=== PATIENT | male | born 1945 | race Two or more races ===

== ENCOUNTER 2020-06-14 21:05 | Inpatient (IN) | payer MEDICARE, OTHER ==
[~2020-06-14] VITALS: Ht 165.1 cm; Wt 69.4 kg
[2020-06-14] MEDS ORDERED: IBUPROFEN 600 MG TABLET PO ONE (21:30)
[2020-06-14] MEDS ORDERED: IV NS 0.9% 1,000 ML BAG IV ONE (21:30)
[2020-06-14 21:32] LABS: BASOPHILS % (AUTO) 0.1 % (0.0-2.0); HEMATOCRIT 39 % (39-51); HEMOGLOBIN 13.1 g/dL (13.5-17.5); LYMPHOCYTES # (AUTO) 0.3 /CMM (0.8-4.8); LYMPHOCYTES % (AUTO) 3.6 % (20.0-44.0); MEAN CORPUSCULAR HGB CONC 33 g/dl (31.0-36.0); MEAN CORPUSCULAR VOLUME 90 fL (80-96); MONOCYTES # (AUTO) 0.1 /CMM (0.1-1.30); MONOCYTES % (AUTO) 1.5 % (2.0-12.0); NEUTROPHILS # (AUTO) 8.3 /CMM (1.8-8.9); NEUTROPHILS % (AUTO) 94.8 % (43.0-81.0); PLATELET COUNT (AUTO) 207 /CMM (150-450); RED BLOOD CELL COUNT(AUTO) 4.33 MIL/uL (4.5-6.0); WHITE BLOOD COUNT (AUTO) 8.7 K/uL (4.3-11.0)
[2020-06-14 21:41] LABS: CALCIUM, SERUM 9.5 mg/dL (8.5-10.1); CARBON DIOXIDE 25 mmol/L (21-32); CHLORIDE 100 mmol/L (98-107); GLUCOSE 145 mg/dL (74-106); POTASSIUM 3.6 mmol/L (3.5-5.1); SODIUM SERUM 135 mmol/L (136-145); UREA NITROGEN, BLOOD 16 mg/dL (7-18)
--- NOTE | 2020-06-14 21:52 | NUR ---
TOBIN FROM HOME TO ER BED 5. CALLED IN BY . AAOX4. NOT IN RESP DISTRESS. PER PT'S , PT HAS BEEN HAVING ABDOMINAL PAIN SINCE YESTERDAY. BECAUSE OF THE PAIN PT HAS POOR APPETITE AND HAVE BEEN FEELING WEAK. REPORTS THAT PT HAD SEVERAL EPISODES OF VOMMITING AND REPORTS NAUSEA. PT IS LOCATED ON THE EPIGASTRIC AREA, 6/10 SHARP WHEN PRESENT. AT THE TIME OF ASSESSMENT, PT IS NOT COMPLAINING OF PAIN. PT WAS NOTED WITH TEMP OF 100.8. MD WAS AT THE BEDSIDE FOR EVAL. ORDERS RECEIVED NOTED AND CARRIED OUT. IV LINE OBTAINED ON L AC 18G. BLOOD DRAWN AND GIVEN TO PROCESS OWNER AT THE BEDSIDE
[2020-06-14 21:56] LABS: ALANINE AMINOTRANSFERASE 228 U/L (12-78); ALBUMIN 2.8 g/dL (3.4-5.0); ALKALINE PHOSPHATASE 359 U/L (46-116); ASPARTATE AMINOTRANSFERASE 57 U/L (15-37); BILIRUBIN,DIRECT 0.4 mg/dL (0.0-0.2); BILIRUBIN,TOTAL 0.9 mg/dL (0.2-1.0); LIPASE 125 U/L (73-393); TOTAL PROTEIN, SERUM 7.1 g/dL (6.4-8.2)
[2020-06-14] MEDS ORDERED: PIPERACILLIN /TAZOBACTAM 3.375 G VIAL IV ONE (22:18)
[2020-06-14] MEDS ORDERED: VANCOMYCIN 1 GM VIAL ONE (22:18)
[2020-06-14] MEDS ORDERED: ACETAMINOPHEN 325 MG TABLET ONE (22:26)
[2020-06-14] MEDS ORDERED: VANCOMYCIN 1 GM in IV D5W 250 ML IV ONE (22:30)
[2020-06-14] MEDS ORDERED: PIPERACILLIN /TAZOBACTAM 3.375 G in IV D5W 50 ML IV ONE (22:30)
[2020-06-14] MEDS ORDERED: ACETAMINOPHEN 325 MG TABLET PO ONE (22:30)
[2020-06-14 22:53] LABS: C-REACTIVE PROTEIN 5.1 mg/dL (0.0-0.9)
[2020-06-14 23:06] LABS: APPEARANCE,URINE CLEAR (CLEAR); BILIRUBIN,URINE NEGATIVE (NEGATIVE); BLOOD, URINE LARGE Ery/uL (NEGATIVE); COLOR,URINE YELLOW (YELLOW); KETONES,URINE TRACE (NEGATIVE); LEUKOCYTE ESTERASE ,URINE SMALL (NEGATIVE); NITRITE, URINE NEGATIVE (NEGATIVE); PH,URINE 8.5 (5.0-8.0); PROTEIN,URINE TRACE mg/dl (NEGATIVE); UGLUCOSE NEGATIVE (NEGATIVE)
[2020-06-14 23:09] LABS: BACTERIA,URINE Few /HPF (None Seen); RBC,URINE 21-50 /HPF (0-2); SQUAMOUS EPITHELIAL CELL,UR Few /HPF (None Seen)
--- NOTE | 2020-06-14 23:25 | NUR ---
us at bedside
[2020-06-14] MEDS ORDERED: IV NS 0.9% 1,000 ML IV PRN (23:30)
--- NOTE | 2020-06-14 23:33 | NUR ---
PT NOTED HAVE BP 84/51. MADE AWARE. ORDER RECEIVED TO GIVE BOLUS 1L NS X 1. NOTED AND CARRIED OUT.
--- NOTE | 2020-06-14 23:43 | NUR ---
ER SPOKE TO KEIRA FRANCIS [facility] REGARDING PT ADMISSION.
[2020-06-15] MEDS ORDERED: MAG HYDROX/AL HYDROX/SIMETH 30 ML UDC PO PRN
[2020-06-15] MEDS ORDERED: MAGNESIUM HYDROXIDE 30 ML UDC PO PRN
[2020-06-15] MEDS ORDERED: ZOLPIDEM TARTRATE 5 MG TABLET PO PRN
[2020-06-15] MEDS ORDERED: ACETAMINOPHEN 325 MG TABLET PO PRN
[2020-06-15] MEDS ORDERED: Z GUARD REMEDY 2 OZ OINT TP PRN
[2020-06-15] MEDS ORDERED: ONDANSETRON HCL/PF 4 MG/2 ML VIAL IVP PRN
--- NOTE | 2020-06-15 00:23 | NUR ---
DR. Ryan ELLER PAGED PER ER ORDER.
--- NOTE | 2020-06-15 00:23 | NUR ---
REPORT GIVEN TO NELLA TREVINO FOR CATHERINE.
[2020-06-15 00:35] VITALS: BP 89/49
--- NOTE | 2020-06-15 00:35 | NUR ---
CHANNEL LIP WETTER NOTES PATIENT ARRIVED ON FLOOR AT 0035. PT WALKED TO BED. ALERT AND ORIENTED X 4. BREATHING EVEN AND UNLABORED ON ROOM AIR. SHOWS NO SIGNS OF ACUTE RESPIRATORY DISTRESS, NO ACUTE PAIN. IV ON RAC 20G RUNNING NS AT 75ML/HR. SHOWS NO SIGNS OF INFILTRATION, NO REDNESS. TELE MONITOR 80'S. SKIN ASSESSMENT COMPLETED, AND BELONGINGS CHECKLIST COMPLETED. ORIENTED PT TO ROOM AND UNIT. SAFETY PRECAUTIONS IN PLACE. BED IN LOWEST POSITION, LOCKED, AND CALL LIGHT KEPT WITHIN REACH. DIFFICULT TO COMPLETED THOROUGH INITIAL ASSESSMENT, PT HAS LIMITED COMORAN.
--- NOTE | 2020-06-15 00:35 | NUR ---
PT TRANSPORTED TO UNIT ON [facility] WITH EMT AND RN AT BEDSIDE USING ACLS PROTOCOL. NAD NOTED DURING TRANSPORT. PT AMBULATED ON STEADY GAIT FROM GURNEY TO BED.
[2020-06-15] MEDS: IV NS 0.9% 1,000 ML IV PRN (00:45)
--- NOTE | 2020-06-15 01:08 | NUR ---
DR. Ryan ELLER PAGED PER ER ORDER.
[2020-06-15] MEDS ORDERED: IV NS 0.9% 250 ML IV ONE (01:30)
--- NOTE | 2020-06-15 01:33 | NUR ---
ER MD SPOKE TO DR. Ryan ELLER REGARDING PT ADMISSION.
--- NOTE | 2020-06-15 02:50 | NUR ---
PROFESSIONAL DEVELOPMENT MANAGER NOTES ADMITTING BP 89/49. MD ORDER NS 250 BOLUS. AFTER BOLUS PT BP 97/54. PT STATES NO LIGHTHEADEDNESS, NO DIZZINESS.
[2020-06-15 04:37] VITALS: BP 97/54
[2020-06-15] MEDS ORDERED: PIPERACILLIN /TAZOBACTAM 3.375 G VIAL IV ONE (05:56)
[2020-06-15] MEDS ORDERED: PIPERACILLIN /TAZOBACTAM 3.375 G in IV D5W 50 ML IV SCH ×2 (06:00→12:00)
--- NOTE | 2020-06-15 07:10 | NUR ---
REPRODUCTION MACHINE LOADER NOTES PT IN BED. ALERT AND ORIENTED X 4. BREATHING EVEN AND UNLABORED ON ROOM AIR. SHOWS NO SIGNS OF ACUTE RESPIRATORY DISTRESS, NO ACUTE PAIN. IV ON RAC 20G RUNNING NS AT 75ML/HR. SHOWS NO SIGNS OF INFILTRATION, NO REDNESS. TELE MONITOR 80'S. ALL DUE MEDICATIONS GIVEN. SAFETY PRECAUTIONS IN PLACE. BED IN LOWEST POSITION, LOCKED, AND CALL LIGHT KEPT WITHIN REACH. WILL ENDORSE TO ONCOMING NURSE.
[2020-06-15] MEDS ORDERED: TAMS-12 PO (07:12)
[2020-06-15 07:39] LABS: ALBUMIN 2.3 g/dL (3.4-5.0); BILIRUBIN,TOTAL 1.1 mg/dL (0.2-1.0); CALCIUM, SERUM 9.2 mg/dL (8.5-10.1); PHOSPHORUS 3.3 mg/dL (2.5-4.9); POTASSIUM 4.3 mmol/L (3.5-5.1); TOTAL PROTEIN, SERUM 5.9 g/dL (6.4-8.2)
[2020-06-15 07:49] LABS: BASOPHILS % (AUTO) 0.1 % (0.0-2.0); HEMATOCRIT 34 % (39-51); HEMOGLOBIN 11.1 g/dL (13.5-17.5); LYMPHOCYTES # (AUTO) 0.9 /CMM (0.8-4.8); LYMPHOCYTES % (AUTO) 3.8 % (20.0-44.0); MEAN CORPUSCULAR HGB CONC 33 g/dl (31.0-36.0); MEAN CORPUSCULAR VOLUME 91 fL (80-96); MONOCYTES # (AUTO) 1.3 /CMM (0.1-1.30); MONOCYTES % (AUTO) 5.7 % (2.0-12.0); NEUTROPHILS % (AUTO) 90.4 % (43.0-81.0); PLATELET COUNT (AUTO) 200 /CMM (150-450); RED BLOOD CELL COUNT(AUTO) 3.73 MIL/uL (4.5-6.0); WHITE BLOOD COUNT (AUTO) 23.3 K/uL (4.3-11.0)
--- NOTE | 2020-06-15 08:00 | NUR ---
DIRECTOR CHECK OPENING NOTES Received Patient resting in bed. A/O x 4, Swiss speaking. VS stable with no acute distress. Breathing even and unlabored on room air with no respiratory distress. Denies pain. No signs and symptoms of pain. Telemonitor in place and patent reading SR [id number]. 20g PIV on RAC clean, intact, patent and flushing well with NS infusing at 75ml/hr. Safety precautions in place. Bed locked and set to lowest position with side rails x 2 up. All needs rendered at this time. Call light within reach. Will continue to monitor.
[2020-06-15 08:25] VITALS: BP 100/61
[2020-06-15] MEDS: PANTOPRAZOLE 40 MG TABLET.DR PO SCH (09:18)
[2020-06-15] MEDS: PIPERACILLIN /TAZOBACTAM 3.375 G in IV D5W 100 ML IV SCH ×2 (12:22→21:54)
--- NOTE | 2020-06-15 13:30 | NUR ---
MS RN NOTES Obtained consent for Nuclear Medicine Hepatobiliary Scan (HIDA) at this time. Explained risks and benefits. Patient verbalized understanding. Placed signed consent in chart.
--- NOTE | 2020-06-15 19:08 | NUR ---
MS RN CLOSING NOTES Patient resting in bed. A/O x 4, [place] Verdean speaking. VS stable with no acute distress. Breathing even and unlabored on room air with no respiratory distress. Denies pain. No signs and symptoms of pain. 20g PIV on RAC clean, intact, patent and flushing well with NS infusing at 75ml/hr. Safety precautions in place. Bed locked and set to lowest position with side rails x 2 up. All needs rendered at this time. Call light within reach. Will endorse plan of care to oncoming shift.
[2020-06-15 20:00] VITALS: BP 121/69
[2020-06-15] MEDS ORDERED: FEE PK DOSING 1 MIN EA MC ONE (20:14)
[2020-06-15] MEDS: VANCOMYCIN 1 GM in IV D5W 250ml IV SCH (21:55)
[2020-06-15] MEDS: HYDROCODONE/APAP 5/325MG 1 EACH TABLET PO PRN (23:35)
[2020-06-16] MEDS: IV NS 0.9% 1,000 ML IV PRN ×2 (00:13→23:05)
[2020-06-16] MEDS: PIPERACILLIN /TAZOBACTAM 3.375 G in IV D5W 100 ML IV SCH ×3 (03:06→21:21)
--- NOTE | 2020-06-16 07:40 | NUR ---
RN MS DAY NOTES PATIENT IS AWAKE AND ALERT A/O X 3. IV ON THE L HAND #22G RUNNING NS AT 75 MLS/HR. COMPLAINS OF NO PAIN AT THIS MOMENT. BED IS IN LOW POSITION WITH SIDE RAILS UP X 2 FOR SAFETY. CALL LIGHT WITHIN REACH WILL CONTINUE TO MONITOR
[2020-06-16 08:00] VITALS: BP 135/74
[2020-06-16] MEDS: PANTOPRAZOLE 40 MG TABLET.DR PO SCH (08:22)
[2020-06-16 08:23] LABS: BASOPHILS % (AUTO) 0.1 % (0.0-2.0); HEMATOCRIT 37 % (39-51); LYMPHOCYTES # (AUTO) 1.2 /CMM (0.8-4.8); LYMPHOCYTES % (AUTO) 7.7 % (20.0-44.0); MEAN CORPUSCULAR HGB CONC 33 g/dl (31.0-36.0); MEAN CORPUSCULAR VOLUME 91 fL (80-96); MONOCYTES # (AUTO) 1.1 /CMM (0.1-1.30); MONOCYTES % (AUTO) 7.1 % (2.0-12.0); NEUTROPHILS # (AUTO) 13.3 /CMM (1.8-8.9); NEUTROPHILS % (AUTO) 85.1 % (43.0-81.0); PLATELET COUNT (AUTO) 190 /CMM (150-450); RED BLOOD CELL COUNT(AUTO) 4.03 MIL/uL (4.5-6.0); WHITE BLOOD COUNT (AUTO) 15.6 K/uL (4.3-11.0)
[2020-06-16 08:54] LABS: ALBUMIN 2.4 g/dL (3.4-5.0); BILIRUBIN,DIRECT 0.3 mg/dL (0.0-0.2); BILIRUBIN,TOTAL 0.7 mg/dL (0.2-1.0); CALCIUM, SERUM 9.4 mg/dL (8.5-10.1); CREATININE 0.9 mg/dL (0.6-1.3); POTASSIUM 3.5 mmol/L (3.5-5.1); TOTAL PROTEIN, SERUM 6.4 g/dL (6.4-8.2)
[2020-06-16] MEDS: VANCOMYCIN 1 GM in IV D5W 250ml IV SCH ×2 (09:55→20:04)
[2020-06-16 16:00] VITALS: BP 138/79
--- NOTE | 2020-06-16 18:54 | NUR ---
RN MS CLOSED NOTES PATIENT IS AWAKE AND ALERT A/O X 3-4 WITH NO SIGNS OF DISTRESS IN ROOM AIR. IV ON THE LEFT HAND #22G INTACT INTACT INFUSING NS AT 75 MLS/HR. PATIENT KEPT CLEAN AND DRY. ALL NEEDS CARE, TREATMENT AND MEDICATIONS ADMINISTERED ANTICIPATED PER ORDER. BED IS IN LOW POSITION WITH SIDE RAILS UP X 2 FOR SAFETY. CALL LIGHT WITHIN REACH. WILL ENDORSE TO THE NEXT BAKER PIE.
--- NOTE | 2020-06-16 19:50 | NUR ---
RN OPENING NOTE PT RECEIVED IN BED. PT IS A/A/O X4. PT IS ON RA SATING 95%. NO RESPIRATORY DISTRESS NOTED. PT HAS IV ACCESS RAC 20 G AND L AC 22 G PATENT AND NS 75ML/H RUNNING. SAFETY MEASURES IN PLACE CALL LIGHT IN REACH, BED AT LOWEST POSITION, LOCKED, SIDE RAILS UP X2.
[2020-06-16 20:00] VITALS: BP 127/71
[2020-06-17] MEDS: PIPERACILLIN /TAZOBACTAM 3.375 G in IV D5W 100 ML IV SCH ×3 (05:17→21:35)
--- NOTE | 2020-06-17 07:48 | NUR ---
RN MS DAY NOTES PATIENT IS AWAKE AND ALERT A/O X 3. IV ON THE R HAND #22G INTACT SL AND IV L AC #20G RUNNING NS AT 75 MLS/HR. COMPLAINS OF NO PAIN AT THIS MOMENT. BED IS IN LOW POSITION WITH SIDE RAILS UP X 2 FOR SAFETY. CALL LIGHT WITHIN REACH. WILL CONTINUE TO MONITOR.
[2020-06-17 08:00] VITALS: BP 127/72
[2020-06-17 08:05] LABS: BASOPHILS % (AUTO) 0.2 % (0.0-2.0); EOSINOPHILS % (AUTO) 0.9 % (0.0-6.0); HEMATOCRIT 36 % (39-51); HEMOGLOBIN 12.1 g/dL (13.5-17.5); LYMPHOCYTES # (AUTO) 1.4 /CMM (0.8-4.8); LYMPHOCYTES % (AUTO) 14.3 % (20.0-44.0); MEAN CORPUSCULAR HGB CONC 34 g/dl (31.0-36.0); MEAN CORPUSCULAR VOLUME 90 fL (80-96); MONOCYTES # (AUTO) 1.2 /CMM (0.1-1.30); MONOCYTES % (AUTO) 11.5 % (2.0-12.0); NEUTROPHILS # (AUTO) 7.3 /CMM (1.8-8.9); NEUTROPHILS % (AUTO) 73.1 % (43.0-81.0); PLATELET COUNT (AUTO) 217 /CMM (150-450); RED BLOOD CELL COUNT(AUTO) 4.03 MIL/uL (4.5-6.0)
[2020-06-17 08:22] LABS: CALCIUM, SERUM 9.6 mg/dL (8.5-10.1); CREATININE 0.9 mg/dL (0.6-1.3); POTASSIUM 3.6 mmol/L (3.5-5.1)
[2020-06-17] MEDS: PANTOPRAZOLE 40 MG TABLET.DR PO SCH (08:47)
[2020-06-17] MEDS: VANCOMYCIN 1 GM in IV D5W 250ml IV SCH (09:10)
[2020-06-17 16:00] VITALS: BP_SYST 111; BP_SYST 119; BP_DIAS 71; BP_DIAS 72
--- NOTE | 2020-06-17 18:53 | NUR ---
RN MS CLOSED NOTES PATIENT IS AWAKE AND ALERT A/O X 3. IV ON THE R HAND #22G INTACT SL AND IV L AC #20G RUNNING NS AT 75 MLS/HR. COMPLAINS OF NO PAIN AT THIS MOMENT. PATIENT REMAINED STABLE THROUGH OUT OF SHIFT. PATIENT KEPT CLEAN AND DRY. ALL NEEDS, CARE, TREATMENT AND MEDICATIONS ADMINISTERED ANTICIPATED PER ORDER. SAFETY MEASURE APPLIED, BED IS IN LOW POSITION WITH SIDE RAILS UP X 2 FOR SAFETY. CALL LIGHT WITHIN REACH. WILL ENDORSE TO THE NEXT JANITOR SUPERVISOR.
[2020-06-17] MEDS: VANCOMYCIN 1.25 GM in IV D5W 250 ML IV SCH (19:36)
--- NOTE | 2020-06-17 19:55 | NUR ---
MS RN OPENING NOTES PATIENT RECEIVED RESTING IN BED A/O X 4, MOSTLY [place]ORRAN SPEAKING BUT ABLE TO FOLLOW COMMANDS. ON RA WITH BREATHING EVEN AND UNLABORED, NO SOB NOTED. NO SIGNS OF ACUTE DISTRESS. NO COMPLAINTS OF PAIN OR DISCOMFORT. IV LOCATED ON RHAND #22 AND L AC #20 RUNNING NS @ 75ML/HR. SAFETY PRECAUTIONS IN PLACE WITH BED IN LOWEST POSITION, CALL LIGHT WITHIN REACH, BREAKS ON, SIDE RAILS UP. PATIENT REMAINING NPO THROUGHOUT THE NIGHT. WILL CONTINUE TO MONITOR THROUGHOUT THE NIGHT.
[2020-06-17 20:00] VITALS: BP 126/83
--- NOTE | 2020-06-17 22:14 | NUR ---
MS RN NOTES CONSENT OBTAINED FROM PATIENT FOR PROCEDURE TOMORROW
[2020-06-18] MEDS: PIPERACILLIN /TAZOBACTAM 3.375 G in IV D5W 100 ML IV SCH ×3 (04:24→22:30)
[2020-06-18] MEDS: IV NS 0.9% 1,000 ML IV PRN (06:33)
[2020-06-18 06:38] LABS: BASOPHILS % (AUTO) 0.3 % (0.0-2.0); EOSINOPHILS % (AUTO) 4.5 % (0.0-6.0); HEMATOCRIT 38 % (39-51); HEMOGLOBIN 12.5 g/dL (13.5-17.5); LYMPHOCYTES % (AUTO) 12.2 % (20.0-44.0); MEAN CORPUSCULAR HGB CONC 33 g/dl (31.0-36.0); MEAN CORPUSCULAR VOLUME 90 fL (80-96); MONOCYTES # (AUTO) 1.1 /CMM (0.1-1.30); MONOCYTES % (AUTO) 13.3 % (2.0-12.0); NEUTROPHILS # (AUTO) 5.7 /CMM (1.8-8.9); NEUTROPHILS % (AUTO) 69.7 % (43.0-81.0); PLATELET COUNT (AUTO) 256 /CMM (150-450); RED BLOOD CELL COUNT(AUTO) 4.22 MIL/uL (4.5-6.0); WHITE BLOOD COUNT (AUTO) 8.1 K/uL (4.3-11.0)
[2020-06-18 06:49] LABS: CALCIUM, SERUM 9.5 mg/dL (8.5-10.1); CREATININE 1.1 mg/dL (0.6-1.3); POTASSIUM 3.4 mmol/L (3.5-5.1)
--- NOTE | 2020-06-18 07:02 | NUR ---
MS RN CLOSING NOTES PATIENT RESTING IN BED A/O X 4, MOSTLY [place] SPEAKING BUT ABLE TO FOLLOW COMMANDS. ON RA WITH BREATHING EVEN AND UNLABORED, NO SOB NOTED. NO SIGNS OF ACUTE DISTRESS. NO COMPLAINTS OF PAIN OR DISCOMFORT. IV LOCATED ON RHAND #22 AND L AC #20 RUNNING NS @ 75ML/HR. SAFETY PRECAUTIONS IN PLACE WITH BED IN LOWEST POSITION, CALL LIGHT WITHIN REACH, BREAKS ON, SIDE RAILS UP. PATIENT REMAINED NPO THROUGHOUT THE NIGHT. ALL NEEDS ATTENDED TO. WILL ENDORSE TO ONCOMING SHIFT ABOUT CATHERINE.
[2020-06-18] MEDS: PANTOPRAZOLE 40 MG TABLET.DR PO SCH (07:30)
--- NOTE | 2020-06-18 07:49 | NUR ---
RN MS DAY NOTES PATIENT IS AWAKE AND ALERT A/O X 3. IV ON THE R HAND #22G INTACT SL AND IV L AC #20G RUNNING NS AT 75 MLS/HR. COMPLAINS OF NO PAIN AT THIS MOMENT. NPO. BED IS IN LOW POSITION WITH SIDE RAILS UP X 2 FOR SAFETY. CALL LIGHT WITHIN REACH. WILL CONTINUE TO MONITOR.
[2020-06-18 08:00] VITALS: BP 122/70
[2020-06-18] MEDS: POTASSIUM CL. PREMIX PERIPHER. 50 ML IV SCH ×2 (09:00→09:30)
[2020-06-18] MEDS: VANCOMYCIN 1.25 GM in IV D5W 250 ML IV SCH ×2 (09:00→20:17)
--- NOTE | 2020-06-18 10:00 | NUR ---
PATIENT WAS COMPLAINING OF PAIN WITH POTASSIUM CHLORIDE, SECOND BAG OF POTASSIUM CHLORIDE IV WAS CHANGED WITH XYLOCAINE PER MD BRAXTON ORDERED. REPEATED BACK ORDER AND CARRIED OUT.
[2020-06-18] MEDS ORDERED: POTASSIUM CHLORIDE 10 MEQ/50 ML PREMIXED IVPB FOR PERIPHERAL LINE IV ONE (10:30)
[2020-06-18] MEDS ORDERED: Potassium Chloride 10 MEQ, LIDOCAINE HCL/PF 1% 1 ML in IV D5W 50 ML IV SCH (11:00)
[2020-06-18] MEDS ORDERED: BUPIVACAINE MPF 0.5% W/EPI INJ 30 ML VIAL ONE (14:52)
[2020-06-18] MEDS ORDERED: LIDOCAINE HCL/MPF 1% 30 ML VIAL IJ ONE (14:52)
--- NOTE | 2020-06-18 15:20 | NUR ---
PATIENT LEFT TO OR, STABLE ALERT AND ORIENTED.
[2020-06-18] MEDS ORDERED: FENTANYL PF 100MCG/2ML AMPUL ONE ×2 (15:48→16:45)
[2020-06-18] MEDS ORDERED: SUCCINYLCHOLINE CHLORIDE 20 MG/ML VIAL ONE (15:48)
[2020-06-18] MEDS ORDERED: IOHEXOL 240MG/ML 0 ML IV ONE (17:19)
[2020-06-18] MEDS ORDERED: HYDROMORPHONE INJ 2 MG/ML DISP.SYRIN ONE (18:14)
[2020-06-18 19:05] VITALS: BP 132/83
--- NOTE | 2020-06-18 19:05 | NUR ---
OR RECOVERY NURSE SRIRAM GAVE REPORT TOWARDS THE PATIENT AT BEDSIDE. PATIENT ARRIVED VIA GURNEY. ABDOMINAL SURGICAL STERILE STRIPS INTACT ON SKIN AND RIGHT LOWER ABDOMEN ZENAIDA DRAINAGE 10 ML 2X2 DRESSING. PATIENT IS ALERT AND AWAKE WITH 3 L NASAL CANNULA. VITALS BP 132/83 HR 88 SPO2 94% TEMP 97.8. REPORTED PAIN 6/10 PS. WAITING ON DOCTOR ORDERS. SAFETY MEASURES ARE APPLIED BED IS IN LOW POSITION WITH SIDE RAILS UP X 2 FOR SAFETY. CALL LIGHT WITHIN REACH. WILL ENDORSE TO THE NEXT DRY HEAT ROOM ATTENDANT.
[2020-06-18 19:15] VITALS: BP 136/75
--- NOTE | 2020-06-18 19:28 | NUR ---
CALLED PATIENT TO INFORM HER PATIENT IS BACK FROM RECOVERY ROOM.
[2020-06-18 19:30] VITALS: BP 125/71
[2020-06-18 20:00] VITALS: BP 136/75
--- NOTE | 2020-06-18 20:01 | NUR ---
MS RN OPENING NOTES PATIENT RECEIVED IN BED RESTING S/P PROCEDURE. VITALS STABLE. ON 2L OF O2 WITH BREATHING EVEN AND UNLABORED, NO SOB NOTED. NO SIGNS OF ACUTE DISTRESS. SLIGHT COMPLAINTS OF PAIN OR DISCOMFORT. A/O X 4. IV LOCATED ON L AC #20 RUNNING NS @ 75 ML/ HR. ZENAIDA DRAIN NOTED AND IN PLACE ON R LOWER ABDOMEN. SAFETY PRECAUTIONS IN PLACE WITH BED IN LOWEST POSITION, CALL LIGHT WITHIN REACH, BREAKS ON, SIDE RAILS UP. WILL CONTINUE TO MONITOR THROUGHOUT THE NIGHT.
[2020-06-19] MEDS: PIPERACILLIN /TAZOBACTAM 3.375 G in IV D5W 100 ML IV SCH ×3 (03:59→20:00)
--- NOTE | 2020-06-19 06:48 | NUR ---
MS RN CLOSING NOTES PATIENT IN BED RESTING A/O X 4. ON 2L OF O2 WITH BREATHING EVEN AND UNLABORED, NO SOB NOTED. NO SIGNS OF ACUTE DISTRESS. SLIGHT COMPLAINTS OF PAIN OR DISCOMFORT. IV LOCATED ON L AC #20 RUNNING NS @ 75 ML/ HR. ZENAIDA DRAIN NOTED AND IN PLACE ON R LOWER ABDOMEN DRAINING RED OUTPUT. SAFETY PRECAUTIONS IN PLACE WITH BED IN LOWEST POSITION, CALL LIGHT WITHIN REACH, BREAKS ON, SIDE RAILS UP. ALL NEEDS ATTENDED TO. WILL ENDORSE TO ONCOMING SHIFT ABOUT CATHERINE.
--- NOTE | 2020-06-19 07:39 | NUR ---
MS RN OPENING NOTES RECEIVED PATIENT IN BED, AWAKE, A/O X4. PATIENT IS ON OXYGEN THERAPY; BREATHING IS EVEN AND UNLABORED, NO SOB PRESENT AT THIS TIME. COMPLAINING OF MILD PAIN AT THE SURGERY SITE. ZENAIDA DRAIN DRAINING SEROSANGUINEOUS FLUID. LAC G#22 PRESENT AND INTACT INFUSING NS @75 MLS/HR. SAFETY PRECAUTIONS IN PLACE; BED IN LOW POSITION AND LOCKED, RAILS UP X2, CALL LIGHT WITHIN REACH. WILL CONTINUE TO MONITOR PATIENT.
[2020-06-19 08:00] VITALS: BP 119/71
[2020-06-19] MEDS: PANTOPRAZOLE 40 MG TABLET.DR PO SCH (08:06)
[2020-06-19 08:26] LABS: BASOPHILS % (AUTO) 0.1 % (0.0-2.0); EOSINOPHILS % (AUTO) 0.4 % (0.0-6.0); HEMATOCRIT 35 % (39-51); HEMOGLOBIN 11.7 g/dL (13.5-17.5); LYMPHOCYTES # (AUTO) 1.1 /CMM (0.8-4.8); MEAN CORPUSCULAR HGB CONC 34 g/dl (31.0-36.0); MEAN CORPUSCULAR VOLUME 91 fL (80-96); MONOCYTES # (AUTO) 0.9 /CMM (0.1-1.30); MONOCYTES % (AUTO) 11.8 % (2.0-12.0); NEUTROPHILS # (AUTO) 5.9 /CMM (1.8-8.9); NEUTROPHILS % (AUTO) 73.7 % (43.0-81.0); PLATELET COUNT (AUTO) 290 /CMM (150-450); RED BLOOD CELL COUNT(AUTO) 3.84 MIL/uL (4.5-6.0)
[2020-06-19] MEDS ORDERED: METR500T PO (08:47)
[2020-06-19] MEDS ORDERED: CIPR-262 PO (08:47)
[2020-06-19 09:14] LABS: ALANINE AMINOTRANSFERASE 109 U/L (12-78); ALBUMIN 2.1 g/dL (3.4-5.0); ALKALINE PHOSPHATASE 199 U/L (46-116); ASPARTATE AMINOTRANSFERASE 70 U/L (15-37); BILIRUBIN,TOTAL 0.7 mg/dL (0.2-1.0); CALCIUM, SERUM 9.6 mg/dL (8.5-10.1); CARBON DIOXIDE 27 mmol/L (21-32); CHLORIDE 106 mmol/L (98-107); CREATININE 1.4 mg/dL (0.6-1.3); GLUCOSE 109 mg/dL (74-106); MAGNESIUM 2.4 mg/dL (1.8-2.4); PHOSPHORUS 3.8 mg/dL (2.5-4.9); SODIUM SERUM 141 mmol/L (136-145); TOTAL PROTEIN, SERUM 6.2 g/dL (6.4-8.2); UREA NITROGEN, BLOOD 21 mg/dL (7-18)
--- NOTE | 2020-06-19 19:23 | NUR ---
MS RN CLOSING NOTES PATIENT IN BED, AWAKE, A/O X4. PATIENT IS ON OXYGEN THERAPY AT 2 LPM VIA NASAL CANULA; BREATHING IS EVEN AND UNLABORED, NO SOB PRESENT AT THIS TIME. COMPLAINING OF MILD PAIN AT THE SURGERY SITE. ZENAIDA DRAIN DRAINING SEROSANGUINEOUS FLUID WITH 25 MLS OUTPUT. RAC G#20 PRESENT AND INTACT INFUSING NS @75 MLS/HR. ALL NEEDS ATTENDED TO THROUGHOUT THE DAY. SAFETY PRECAUTIONS IN PLACE; BED IN LOW POSITION AND LOCKED, RAILS UP X2, CALL LIGHT WITHIN REACH. WILL ENDORSE TO JET AIRCRAFT SERVICER NURSE.
--- NOTE | 2020-06-19 19:34 | NUR ---
MS RN OPENING NOTES PATIENT RECEIVED RESTING IN BED A/OX4. STABLE ON RA WITH RBETHING EVEN AND UNLABRED, NO SOB NOTED. NO SIGNS OF ACUTE DISTRESS. SLIGHT COMPLAINTS OF PAIN AND DISCOMFORT. ZENAIDA DRAIN NOTED AND IN PLACE. IV LOCATED ON R HAND RUNNING NS @ 75 ML/HR. SAFETY PRECAUTIONS IN PLACE WITH BED IN LOWEST POSITION, CALL LIGHT WITHIN REACH, BREAKS ON, SIDE RAILS UP/ WILL CONTINUE TO MONITOR THROUGHOUT THE NIGHT.
[2020-06-19 20:00] VITALS: BP 119/69
[2020-06-19] MEDS: HYDROCODONE/APAP 5/325MG 1 EACH TABLET PO PRN (20:00)
[2020-06-20] MEDS: PIPERACILLIN /TAZOBACTAM 3.375 G in IV D5W 100 ML IV SCH (04:06)
--- NOTE | 2020-06-20 06:50 | NUR ---
MS RN OPENING NOTES PATIENT RESTING IN BED A/OX4. STABLE ON RA WITH BREATHING EVEN AND UNLABORED, NO SOB NOTED. NO SIGNS OF ACUTE DISTRESS. SLIGHT COMPLAINTS OF PAIN AND DISCOMFORT. ZENAIDA DRAIN NOTED AND IN PLACE. IV LOCATED ON R WRIST RUNNING NS @ 75 ML/HR. SAFETY PRECAUTIONS IN PLACE WITH BED IN LOWEST POSITION, CALL LIGHT WITHIN REACH, BREAKS ON, SIDE RAILS UP. ALL NEEDS ATTENDED TO. WILL ENDORSE TO ONCOMING SHIFT ABOUT CATHERINE.
[2020-06-20 07:12] LABS: BASOPHILS % (AUTO) 0.3 % (0.0-2.0); EOSINOPHILS % (AUTO) 1.1 % (0.0-6.0); HEMATOCRIT 35 % (39-51); HEMOGLOBIN 11.6 g/dL (13.5-17.5); LYMPHOCYTES # (AUTO) 1.4 /CMM (0.8-4.8); LYMPHOCYTES % (AUTO) 16.3 % (20.0-44.0); MEAN CORPUSCULAR HGB CONC 33 g/dl (31.0-36.0); MEAN CORPUSCULAR VOLUME 91 fL (80-96); MONOCYTES # (AUTO) 1.1 /CMM (0.1-1.30); NEUTROPHILS # (AUTO) 5.9 /CMM (1.8-8.9); NEUTROPHILS % (AUTO) 69.3 % (43.0-81.0); PLATELET COUNT (AUTO) 304 /CMM (150-450); RED BLOOD CELL COUNT(AUTO) 3.83 MIL/uL (4.5-6.0); WHITE BLOOD COUNT (AUTO) 8.5 K/uL (4.3-11.0)
[2020-06-20 07:53] LABS: ALBUMIN 2.1 g/dL (3.4-5.0); BILIRUBIN,TOTAL 0.8 mg/dL (0.2-1.0); CALCIUM, SERUM 9.3 mg/dL (8.5-10.1); CREATININE 1.3 mg/dL (0.6-1.3); MAGNESIUM 2.3 mg/dL (1.8-2.4); PHOSPHORUS 1.9 mg/dL (2.5-4.9); POTASSIUM 3.4 mmol/L (3.5-5.1); TOTAL PROTEIN, SERUM 6.3 g/dL (6.4-8.2)
[2020-06-20 08:00] VITALS: BP 121/72
--- NOTE | 2020-06-20 08:00 | NUR ---
RECEIVED PT. IN AM,ALERT AND ORIENTED X3-4.MOSTLY LIBY[place] SPEAKING.ABD,SURG. SITES DRY AND INTACT.ZENAIDA DRAIN IN PLACE WITH MOD. AMT. SEROSANGUINOUS DRAINAGE.VS STABLE.NO COMPLAINTS OFFERED.IV INFUSING.
[2020-06-20] MEDS: PANTOPRAZOLE 40 MG TABLET.DR PO SCH (09:18)
[2020-06-20] MEDS ORDERED: POTASSIUM CHLORIDE 20 MEQ TAB.PRT.SR PO ONE (11:30)
[2020-06-20] MEDS ORDERED: POTASSIUM PHOSPHATE MM 7.5 MMOL in IV D5W 100 ML IV SCH (12:00)
[2020-06-20] MEDS ORDERED: NEUTRA PHOS 1 POWD.PACKET PO ONE (12:00)
--- NOTE | 2020-06-20 12:00 | NUR ---
DUE TO DISCHARGE PHARM. CALLED TO CLARIFY WITH STAVE CUTTING SUPERVISOR ON IV PHOSPHOROUS REPLACEMENT.
--- NOTE | 2020-06-20 12:30 | NUR ---
RN GAVE AAKASH QUEZADA.PKTS.
--- NOTE | 2020-06-20 13:15 | NUR ---
Woody MCKEON EMERGENCY MEDICINE PHYSICIAN IN AND DC ORDER GIVEN,PENDING SURG. CLEARANCE.ORDERS FOR KPHOS.
--- NOTE | 2020-06-20 13:20 | NUR ---
DC INSTRUCTIONS GIVEN .TRAVELING PASSENGER AGENT FOR DR. ELLER HERE AND REMOVED ZENAIDA DRAIN.HEP LOCK OUT.ALL PAPERS SIGNED INCLUDING BELONGING SHEET.TRANSPORTED VIA W/C TO [facility]. WAITING JUST OUTSIDE HOSP.
[2020-06-21 07:29] LABS: PTH, INTACT 41 pg/mL (15-65)
[2020-06-21 15:11] LABS: *SPE A/G RATIO 0.7 (0.7-1.7); *SPE ALBUMIN 2.1 g/dL (2.9-4.4); *SPE ALPHA-1-GLOBULIN 0.5 g/dL (0.0-0.4); *SPE ALPHA-2-GLOBULIN 0.8 g/dL (0.4-1.0); *SPE BETA GLOBULIN 1.1 g/dL (0.7-1.3); *SPE GLOBULIN, TOTAL 3.2 g/dL (2.2-3.9); *SPE M-SPIKE Not Observed g/dL (Not Observed); *SPEGAMMA GLOBULIN 0.8 g/dL (0.4-1.8)
== END 2020-06-20 13:15 | disposition home or self-care (01) | DRG 853 ==
LOC: ER 21:12 → TELE 06-15 00:03 → MED 06-15 07:51
PROVIDERS: ADMIT Nurse Practitioner Acute Care; ATTEND Nurse Practitioner Acute Care
PROC: 0FT44ZZ Resection of Gallbladder, Percutaneous Endoscopic Approach (ICD-10-PCS; principal; 2020-06-18)
PROC: 0FB04ZX Excision of Liver, Percutaneous Endoscopic Approach, Diagnostic (ICD-10-PCS; 2020-06-18)
DX: A41.9 Sepsis, unspecified organism (principal); K65.9 Peritonitis, unspecified; N17.0 Acute kidney failure with tubular necrosis; R65.21 Severe sepsis with septic shock; E44.0 Moderate protein-calorie malnutrition; N39.0 Urinary tract infection, site not specified; K80.12 Calculus of gallbladder with acute and chronic cholecystitis without obstruction; R74.0 Nonspecific elevation of levels of transaminase and lactic acid dehydrogenase [LDH]; D63.8 Anemia in other chronic diseases classified elsewhere; R53.1 Weakness; E88.09 Other disorders of plasma-protein metabolism, not elsewhere classified; Z68.25 Body mass index [BMI] 25.0-25.9, adult; N28.89 Other specified disorders of kidney and ureter; Z88.2 Allergy status to sulfonamides; N40.1 Benign prostatic hyperplasia with lower urinary tract symptoms
CPT/HCPCS: 36415; 71045-TC; 76705-TC; 78226; 80048-TC; 80053-TC; 80076-TC; 80202-TC; 81000-TC; 82140-TC; 82150-TC; 82550-TC; 83605-TC; 83690-TC; 83735-TC; 83970; 84100-TC; 84132-TC; 84155; 84165; 84484-TC; 85025-TC; 85610-TC; 85730-TC; 86140-TC; 86850-TC; 87040-TC; 87081-TC; 87086-TC; 87186-TC; A9537; G0378; J0330; J1170; J2543; J3010; J3370; J3480; J3490; J7030; J7050; J7060; Q9966

== ENCOUNTER 2020-06-22 09:59 | Emergency (ER) | payer MEDICARE, OTHER ==
[~2020-06-22] VITALS: Ht 170.2 cm; Wt 70.3 kg
[~2020-06-22 09:59] MED LIST: CIPR-262 PO; METR500T PO; TAMS-12 PO
--- NOTE | 2020-06-22 10:09 | NUR ---
PT AMBULATORY TO ER BED 04 C/O ANTHONY PAIN X 2 DAYS. PT STATES HAD A SURGICAL PROCEDURE 4 DAYS AGO. PT DENIES ANY OTHER COMPLAINT AT THIS TIME. AWAITING MD CHOI
--- NOTE | 2020-06-22 10:17 | NUR ---
DR CHRISTOPHER AT BEDSIDE FOR EVAL.
--- NOTE | 2020-06-22 11:18 | NUR ---
U/S TECH AT BEDSIDE FOR LUE DUPLEX ULTRASOUND.
[2020-06-22] MEDS ORDERED: APIXABAN 2.5 MG TABLET PO SCH (12:00)
--- NOTE | 2020-06-22 12:01 | NUR ---
Patient discharged to home in stable condition. Written and verbal after care instructions given. Patient verbalizes understanding of instruction.
[2020-06-22 12:02] VITALS: BP 108/63
== END 2020-06-22 12:04 | disposition home or self-care (01) ==
LOC: ER 10:04
DX: I82.622 Acute embolism and thrombosis of deep veins of left upper extremity (principal); Z90.79 Acquired absence of other genital organ(s); Z79.899 Other long term (current) drug therapy
CPT/HCPCS: 93971-TC

== ENCOUNTER 2020-06-23 11:08 | Emergency (ER) | payer MEDICARE, OTHER ==
[~2020-06-23] VITALS: Ht 170.2 cm; Wt 70.3 kg
[2020-06-23 11:14] VITALS: BP 133/77
--- NOTE | 2020-06-23 11:37 | NUR ---
Patient discharged to home in stable condition. Written and verbal after care instructions given. Patient verbalizes understanding of instruction.
== END 2020-06-23 11:38 | disposition home or self-care (01) ==
LOC: ER 11:11
DX: I80.8 Phlebitis and thrombophlebitis of other sites (principal); I82.622 Acute embolism and thrombosis of deep veins of left upper extremity; N40.0 Benign prostatic hyperplasia without lower urinary tract symptoms; Z90.49 Acquired absence of other specified parts of digestive tract; Z79.899 Other long term (current) drug therapy